=== PATIENT | male | born 1990 | race Caucasian/White ===

== ENCOUNTER 2019-03-12 20:42 | Emergency (ER) | payer OTHER ==
[2014-08-21 08:29] VITALS: Wt 68.0 kg
[~2019-03-12 20:42] MED LIST: CLI150 PO; GLUC1KIT4 IJ; HUM7030I SC; INSU100I30 SQ; INSU100V35 SQ; LANI SC; OMEP-218 PO; PAN40 PO; POTT20 PO; PRE10 PO; SUBC1EAC MC; [UNRECOGNIZED DRUG - CODE] MC; [UNRECOGNIZED DRUG - OTHER] SC
[2019-03-12 20:49] VITALS: BP 122/78
--- NOTE | 2019-03-12 20:50 | ER Report ---
History and Physical Time Seen By MD: 20:48 HPI/ROS CHIEF COMPLAINT: Type I diabetic, hyperglycemia HISTORY OF PRESENT ILLNESS: 28-year-old male type I diabetic, normally managed on a pump. His pump fell off earlier. He replaced it with a backup pump that he had that subsequent fell off. Patient's here requesting needles to give his insulin to himself to prevent DKA. Patient's fingerstick glucose here is 302. Patient notes no signs or symptoms of DKA. REVIEW OF SYSTEMS: Respiratory: No cough, no dyspnea. Cardiovascular: No chest pain, no palpitations. Gastrointestinal: No vomiting, no abdominal pain. Musculoskeletal: No back pain. Allergies: Coded Allergies: Penicillins (Verified Allergy, Mild, 03/12/19) Home Meds Active Scripts Glucagon,Human Recombinant (GLUCAGON EMERGENCY KIT) 1 Mg Kit, 1 MG IJ ONCE PRN for hypoglycemia, #1 KIT 1 Refill To be used for hypoglycemia Prov:STEW TAM MD 08/21/14 Reported Medications Insulin Aspart (NOVOLOG) 100 Unit/1 Ml Cartridge, 100 UNIT SQ 03/12/19 Sertraline Hcl (SERTRALINE HCL) 100 Mg Tablet, 1 TAB PO QDAY, TAB 03/12/19 Subcutaneous Insulin Pump (INSULIN PUMP) 1 Each Each, 1 EACH MC 08/20/14 Syring W-Ndl,Disp,Insul,0.5ML (Syringe) 30/Dis.syr Disp.syrin, 30 DIS.SYR MC, 0 Refills 11/11/11 Discontinued Reported Medications Insulin Aspart (NOVOLOG) 100 Unit/1 Ml Vial, 100 UNIT SQ per sliding scale 03/19/12 Discontinued Scripts Insulin Glargine 100 Un/Ml Pen (LANTUS SOLOSTAR PEN) 100 Unit/1 Ml Insuln.pen, 25 UNIT SQ QAM for 30 Days, VIAL Prov:STEW TAM MD 08/21/14 Reviewed Nurses Notes: Yes Old Medical Records Reviewed: Yes Hx Smoking: No Smoking Status: Former Smoker Hx Substance Use Disorder: No Hx Alcohol Use: Yes Constitutional Vital Sign - Last 24 Hours 03/12/19 20:49 Temp 99.5 Pulse 105 Resp 16 B/P (MAP) 122/78 Pulse Ox 91 O2 Delivery Room Air Physical Exam General Appearance: The patient is alert, has no immediate need for airway protection and no current signs of toxicity. Vital signs stable, afebrile, pulse ox normal HEENT: Pupils equal and round no injection. Oropharynx without redness or exudate, mucous. Membranes are moist Respiratory: Chest is non tender, lungs are clear to auscultation. Cardiac: regular rate and rhythm Gastrointestinal: Abdomen is soft and non tender, no masses, bowel sounds normal. Musculoskeletal: Neck: Neck is supple and non tender. Extremities have full range of motion and are non tender. Skin: No rashes or lesions. DIFFERENTIAL DIAGNOSIS: After history and physical exam differential diagnosis was considered for hyperglycemia, type I diabetic Medical Decision Making ED Course/Re-evaluation ED Course Patient was minute to an examination room. H&P was done. The differential diagnoses was considered. Patient with diabetic pump failure. He's not able to receive his insulin. He would like some syringes so he may administer his insulin manually. Patient was provided with 5 insulin syringes. He is advised to follow-up with his primary care. Decision to Disposition Date: Mar 12, 2019 Decision to Disposition Time: 20:55 Depart Departure Latest Vital Signs Vital Signs Date Time Temp Pulse Resp B/P (MAP) Pulse Ox O2 Delivery O2 Flow Rate FiO2 03/12/19 20:49 99.5 105 16 122/78 91 Room Air Impression: Primary Impression: Type I diabetes mellitus Additional Impression: Hyperglycemia Condition: Stable Disposition: HOME OR SELF-CARE Referrals: MACARENA GONZALES MD (PCP) Patient Instructions: Diabetic Hyperglycemia (ED), Type 1 Diabetes in Adults (ED) Problem Qualifiers Primary Impression: Type I diabetes mellitus Diabetes mellitus complication status: without complication Qualified Codes: E10.9 - Type 1 diabetes mellitus without complications LISBETH RODRIGUEZ DO Mar 12, 2019 20:50
[2019-03-12] MEDS ORDERED: SERT-181 PO (20:53)
[2019-03-12] MEDS ORDERED: INSU100C14 SQ (20:53)
== END 2019-03-12 21:05 | disposition home or self-care (01) ==
LOC: ER 20:49
DX: E10.9 Type 1 diabetes mellitus without complications (principal)
CPT/HCPCS: 99281